=== PATIENT | male | born 1950 | race Caucasian/White ===

== ENCOUNTER → 2017-02-19 | Day surgery (SDC) | payer BC ==
[~2017-02-19] MED LIST: AMBIEN5 MG PO; CELEXA20 MG PO; CIPRO500 MG PO; COLACE100 MG PO; FENOFIBRATE160 MG PO; HYDROCODON-ACE1 EAC6 PO; PROAIR HFA8.5 GM IH; SPIRIVA18 MCG IH; SYMBICORT 16010.2 GM IH; ZOCOR40 MG PO
== END | disposition home or self-care (01) ==
LOC: SDCH 07:08
DX: Z12.11 Encounter for screening for malignant neoplasm of colon (principal); D12.5 Benign neoplasm of sigmoid colon; K63.5 Polyp of colon; K57.30 Diverticulosis of large intestine without perforation or abscess without bleeding; I10 Essential (primary) hypertension; J44.9 Chronic obstructive pulmonary disease, unspecified; F43.10 Post-traumatic stress disorder, unspecified; Z85.46 Personal history of malignant neoplasm of prostate; Z87.442 Personal history of urinary calculi; Z87.891 Personal history of nicotine dependence; Z98.890 Other specified postprocedural states
CPT/HCPCS: J2704